=== PATIENT | male | born 1970 ===

== ENCOUNTER 2025-04-24 15:50 | Emergency (ER) | payer OTHER ==
[2025-04-24] VITALS (7 sets, daily range): BP systolic 106–132; BP diastolic 77–88; PULSE 57–67; RESP 12–16; TEMP 98; O2SAT 96–100
[~2025-04-24] VITALS: Ht 188 cm; Wt 86.5 kg
--- NOTE | 2025-04-24 16:19 | Physician Documentation ---
History of Present Illness ~ Chief Complaint: Hand pain Stated Complaint: HAND LAC/UNABLE TO BEND FINGERS Time Seen by MD: 16:14 HPI 54-year-old male was working with gutter metal and sliced his right finger on the posterior causing decreased range motion.The laceration is clean cut with bleeding controlled. Dr. mccormick with the patient in his currently evaluating him. Jace indicates that he will likely need to go to surgery emergently and repair of the extensor tendon of affected finger Day of Onset: Apr 24, 2025 Medication Reconciliation Allergies: Coded Allergies: No Known Allergies (Unverified , 04/24/25) Miscellaneous Medications Home Med List (No Home Medications), (Reported) Review of Systems All Other Systems at this time: Reviewed and Negative ROS As stated above in the HPI, otherwise all systems are reviewed and negative. Physical Exam Vital Signs: Temperature: 98.0, Source: Temporal, Heart Rate: 73, Respiratory Rate: 16, BP: 157/89, Pulse Oximetry: 99, Weight: 86.500 Oxygen Flow Rate: 0 Physical Exam General: Alert, no apparent distress. HEENT: PERRL, EOMI, no injection, moist mucous membranes. Extremities: decreased range motion of the right 3rd finger at the MIP, notable laceration across the 3rd finger at the joint 1.5 cm Neurologic: Oriented x4. Psychiatric: Normal mood and affect. Skin: Normal color, warm and dry. No edema, no ecchymosis. Progress Results/Orders Results/Orders Completed Orders - BRYCE LEWIS [employer] Cbc/Diff (04/24/25 16:23) Lidocaine 1% W/Preservative (Lidocaine 1 (04/24/25 16:37) Bupivacaine 2.5mg/Ml Inj. (Marcaine 0.25 (04/24/25 16:38) Midazolam 1 Mg/Ml 2ml Inj. (Versed 1 Mg/ (04/24/25 17:01) Cefazolin Inj. (Ancef Inj.) (04/24/25 17:03) Cefazolin Inj. (Ancef Inj.) (04/24/25 17:03) Propofol Inj (Diprivan Inj) (04/24/25 17:19) Vital Signs 04/24/25 04/24/25 04/24/25 04/24/25 15:52 17:31 17:40 17:50 Temp 98.0 98.1 Pulse 73 67 59 57 Resp 16 14 16 12 B/P (MAP) 157/89 106/77 (87) 116/84 (95) 120/82 (95) Pulse Ox 99 96 97 99 O2 Delivery Mask Room Air Room Air O2 Flow Rate 0 6.0 0.0 0.0 04/24/25 04/24/25 04/24/25 18:00 18:10 18:20 Pulse 57 60 62 Resp 16 12 14 B/P (MAP) 118/86 (97) 132/85 (101) 126/88 (101) Pulse Ox 100 99 98 O2 Delivery Room Air Room Air Room Air O2 Flow Rate 0.0 0.0 0.0 Laboratory Tests Test 04/24/25 16:34 White Blood Count 4.8 Red Blood Count 4.68 L Hemoglobin 15.8 Hematocrit 46.3 Mean Corpuscular Volume 99.0 H Mean Corpuscular Hemoglobin 33.7 H Mean Corpuscular Hemoglobin Concent 34.0 Red Cell Distribution Width 13.3 Platelet Count 292 Mean Platelet Volume 8.2 Neutrophils (%) (Auto) 72.3 Lymphocytes (%) (Auto) 20.0 L Monocytes (%) (Auto) 6.8 Eosinophils (%) (Auto) 0.6 Basophils (%) (Auto) 0.3 Neutrophils # (Auto) 3.5 Lymphocytes # (Auto) 1.0 L Monocytes # (Auto) 0.3 Eosinophils # (Auto) 0.0 Basophils # (Auto) 0.0 CBC Comment Medical Decision Making Additional information obtaine: old records Findings Dr. Mccormick plans to take patient emergently to the OR under local anesthesia to repair the tendon of the 3rd finger of the right hand General Diff Dx:Considerations: Unlikely: Abrasion, Contusion, Fracture, Hematoma, Laceration, Malunion, Neurovascular injury, Open fracture, Sprain, Ulcer, Other Shoulder Diff Dx:Consideration: Unlikely: AC separation, Adhesive capsulitis, Arthritis, Bicipital tendonitis, Calcific tendonitis, Cervical disc disease, Contusion, Dislocation, Fracture-humerus, Fracture-scapula, Fracture-clavicle, GB disease, Hematoma, Impingement syndrome, Myocardial infarction, Neurovascular injury, Open fracture-humerus, Open fracture-scapula, Open fracture-clavicle, Ro tator cuff injury, SC dislocatoin, Sprain, Subacromial bursitis, Other Elbow Diff Dx:Considerations: Unlikely: Abrasion, Arthritis, Contustion, DJD, Fracture-humerus, Fracture-radial head, Fracture-radius, Fracture-ulna, Gout, Hematoma, Laceration, Neurovascular injury, Olecranon bursitis, Open fracture, Osteomyelitis, Radial head subluxation, Rheumatoid arthritis, Septic, Sprain, Ulcer, Other Wrist Diff Dx:Considerations: Unlikely: Abrasion, Arthritis, DJD, Gout, Rheumatoid, Septic, Carpal tunnel snydrome, Contusion, Dislocation, Fracture- carpal, Fracture-radius, Fracture-ulna, Ganglion, Laceration, Neurovascular injury, Open fracture, Strain, Other Hand Diff Dx:Considerations: Unlikely: Abrasion, Arthritis, Contusion, DJD, Felon, Fracture-carpal, Fracture-metacarpal, Fracture-phalynx, Fracture-radius, Fracture-ulna, Gout, Hematoma, Herpetic xin, Laceration, Neurovascular injury, Open fracture, Paronychia, Rheumatoid arthritis, Septic, Sprain, Subungual hematoma, Tenosynovitis, Volar plate injury, Cellulitis, Malunion, Other Finger Diff Dx:Considerations: Include: Abrasion, Cellulitis, Contusion, Dislocation, Fracture, Hematoma, Laceration, Neurovascular injury, Open f racture, Subungual hematoma, Other Departure Disposition: 09 ADMITTED INPATIENT Impression: Primary Impression: Extensor tendon laceration of right hand with open wound Qualified Codes: S66.821A - Laceration of other specified muscles, fascia and tendons at wrist and hand level, right hand, initial encounter; S61.401A - Unspecified open wound of right hand, initial encounter Condition: Stable Referrals: NO PRIMARY CARE PROVIDER (PCP) Signature Scribe Signature: y Attestation: Scribed for Bryce Lewis Np by Bryce Mata NP . 04/24/25 16:29 BRYCE LEWIS NP Apr 24, 2025 16:19
--- NOTE | 2025-04-24 16:32 | HISTORY AND PHYSICAL ---
History & Physical - Short Providers to CC ~ History of Present Illness Chief Complain & History 54-year-old healthy man was cleaning his gutters today when he accidentally cut the back of his right hand near the knuckle of the middle finger. He immediately had bleeding and inability to extend the middle finger. Relevant Social History\Habits Negative Allergies: Coded Allergies: No Known Allergies (Unverified , 04/24/25) Past Medical History Past Medical History Negative Past Surgical History Past Surgical History Negative Exam Vitals: Vital Signs Date Time Temp Pulse Resp B/P (MAP) Pulse Ox O2 Delivery O2 Flow Rate FiO2 04/24/25 15:52 98.0 73 16 157/89 99 0 Cardiac: Regular rate rhythm Pulmonary: Clear Abdomen: Benign Neurologic: Intact Other: Right hand as a 2 cm transverse laceration just proximal to the 3rd metacarpal head. The middle finger has a severe extensor lag. There was no active bleeding. Neuro exam is grossly intact. Counseling Services Smoking & Tobacco Cessation: N/A Advance Care Planning Advanced Care planning: N/A Problem\Assessment\Plan Problems: (1) Extensor tendon laceration of right hand with open wound Status: Acute Additional Plan The patient needs surgical correction with repair of the extensor tendon. He will be admitted for outpatient surgery and will be discharged after surgery today Sepsis Screening Cardiology Exam: normal peripheral pulses Extremities: normal inspection Skin Color: Normal Problem Qualifiers (1) Extensor tendon laceration of right hand with open wound: Encounter type: initial encounter Qualified Codes: S66.821A - Laceration of other specified muscles, fascia and tendons at wrist and hand level, right hand, initial encounter; S61.401A - Unspecified open wound of right hand, initial encounter ALECIA FRANCES Jr., MD Apr 24, 2025 16:32
[2025-04-24] MEDS ORDERED: NO HOME MEDS (16:36)
[2025-04-24] MEDS ORDERED: LIDOcaine 1% (10mg/ml)w/preservative inj. 20ml MDV ONE (16:37)
[2025-04-24] MEDS ORDERED: BUPIVAcaine 2.5mg/ml inj 50ml vial (contains preservative) ONE (16:38)
[2025-04-24 16:45] LABS: MEAN PLATELET VOLUME 8.2 FL (7.4-10.4); RED CELL DISTRIBUTION WIDTH 13.3 % (11.5-14.5)
[2025-04-24] MEDS ORDERED: midazolam 1 mg/ML 2ml injection ONE (17:01)
[2025-04-24] MEDS ORDERED: propofol inj 20 ML IV ONE (17:19)
--- NOTE | 2025-04-24 17:41 | OPERATIVE REPORT ---
Operative Report Providers to ~ Date of Procedure: Apr 24, 2025 Pre-Operative Diagnosis: Right hand extensor tendon laceration Post-Operative Diagnosis Right hand extensor tendon laceration at the level of the 3rd metacarpophalangeal joint Procedure Performed Repair of extensor tendon right hand at the level of the metacarpophalangeal joint Surgeon: Mohsen Mccormick MD [employer] None Anesthesiologist: Sony Schultz Type of Anesthesia: Other (Local) Findings: Complete laceration of the middle finger extensor tendon at the level of the metacarpal head Complications None Prosthetics\Implants used: None Estimated Blood Loss: None Specimen Removed: None Description of Procedure: The patient is a 54-year-old man who was cleaning his gutters today when he accidentally cut the back of his right hand. He has had immediate loss of extension of the middle finger. Surgery is indicated to restore function. Risks and benefits were discussed. Some of the risks include rerupture extensor tendon lag stiffness infection and bleeding. He agreed to proceed. In the operating room the arm was prepped and draped in usual manner. Time-out procedure was observed. Local anesthetic was infiltrated proximal to the planned incision site and a tourniquet was elevated on the arm. The transverse laceration was extended on either side proximally and distally and flaps were elevated. The proximal part of the tendon had retracted proximally 3/4 of an inch. Tendon edges were freshened up in repair was performed using multiple locking strands of 4-0 FiberWire followed by a running five 0 nylon epitendinous suture. The incision was then closed with Prolene suture. A sterile dressing was applied along with a splint holding the middle ring and small fingers in near full extension. The tourniquet was released the hand perfused well and he was taken to the recovery room in stable condition. MOHESN MCCORMICK Jr., MD Apr 24, 2025 17:41
== END 2025-04-24 18:26 | disposition home or self-care (01) ==
LOC: ER 15:50
DX: S61.411A Laceration without foreign body of right hand, initial encounter (principal); X58.XXXA Exposure to other specified factors, initial encounter; Y93.89 Activity, other specified; Y92.89 Other specified places as the place of occurrence of the external cause; Y99.8 Other external cause status
CPT/HCPCS: 26410; 36415; 85025; 99285; J0690; J2250; J2704; J3490; J7030; J7120; Z7506; Z7512; A4215; A4618; A6449; A7000